=== PATIENT | female | born 1980 | race African-American/Black ===

== ENCOUNTER → 2016-06-29 | Outpatient (CLI) | payer OTHER ==
[~2016-06-29] MED LIST: /WARF5TA PO; ACET50TA PO; AMOX500T PO; AMOXI; ATIV0.5T3 PO; AUGM875T27 PO; BREO1INH INH; COLA50CA3 PO; EFFE75CA75 PO; FERR325T3 PO; HYDR25T PO; IBUP600T26 PO; LOVE0.8I SUBQ; OMEP40CA2 PO; ONDA4INJ48 PO; PERCOCET PO; PRENTAB74 PO; PROA1AER INH; SYNT100T PO; SYNT112T2 PO; TYLE325T5 PO; VENTAER INH; VITA500C24 PO; VITMTA PO; XANA0.25 PO
[2016-06-29 08:51] LABS: BASO % 0.7 % (0.0-1.0); EOS # 0.2 K/mm3 (0.0-0.50); EOS % 3.8 % (0.0-3.0); LARGE UNSTAINED CELL # 0.1 K/mm3 (0.0-0.4); LARGE UNSTAINED CELL % 1.8 % (0.0-4.0); LYMPH % 28.4 % (24.0-44.0); MEAN CORPUSCULAR HEMOGLOBIN 22.4 pg (27.0-33.0); MEAN CORPUSCULAR HGB CONC 29.9 g/dl (32.0-36.5); MEAN CORPUSCULAR VOLUME 75.1 fl (80.0-96.0); MONO # 0.4 K/mm3 (0.0-0.8); MONO % 6.2 % (0.0-5.0); NEUTROPHILS # 3.8 K/mm3 (1.8-7.7); NEUTROPHILS % 59.1 % (36.0-66.0); PLATELET COUNT, AUTOMATED 270 k/mm3 (150-450); RED CELL DISTRIBUTION WIDTH 17.5 % (11.5-14.5); WHITE BLOOD COUNT 6.5 K/mm3 (4.0-10.0)
[2016-06-29 09:12] LABS: ALBUMIN 3.2 GM/DL (3.2-5.2); ALBUMIN/GLOBULIN RATIO 0.86 (1.00-1.93); ALKALINE PHOSPHATASE 112 U/L (45-117); ALT/SGPT 19 U/L (12-78); ANION GAP 7 MEQ/L (8-16); AST/SGOT 11 U/L (15-37); BILIRUBIN,TOTAL 0.4 MG/DL (0.2-1.0); BLOOD UREA NITROGEN 11 MG/DL (7-18); CALCIUM LEVEL 8.4 MG/DL (8.5-10.1); CARBON DIOXIDE LEVEL 28 MEQ/L (21-32); CHLORIDE LEVEL 106 MEQ/L (98-107); CREATININE FOR GFR 0.88 MG/DL (0.55-1.02); FREE T4 0.97 NG/DL (0.76-1.46); GLOMERULAR FILTRATION RATE > 60.0 (>60); GLUCOSE, FASTING 97 MG/DL (70-105); PERCENT SATURATION 7.6 % (13.2-37.4); POTASSIUM SERUM 3.9 MEQ/L (3.5-5.1); SODIUM LEVEL 141 MEQ/L (136-145); TOTAL IRON BINDING CAPACITY 462 UG/DL (250-450); TOTAL PROTEIN 6.9 GM/DL (6.4-8.2)
== END ==
LOC: M LAB 07:56
PROVIDERS: ATTEND Internal Medicine Gastroenterology
DX: D50.9 Iron deficiency anemia, unspecified (principal)

== ENCOUNTER → 2016-08-05 | Outpatient (CLI) | payer OTHER ==
[~2016-08-05] VITALS: Ht 157.5 cm; Wt 106.1 kg
[~2016-08-05] MED LIST changes: +BACL10TA PO; +LIDOCAINE 2% INJ 100 MG/5 ML SDV (FOR ANES.) As Ordered ONE; +NS 1,000 ML IV SCH; +PROPOFOL 200 MG/20 ML VIAL As Ordered ONE; +VITA200016 PO; +VITA250L PO
--- NOTE | 2016-08-05 09:59 | ROOR ---
Patient Name: Tony Garcia Procedure Date: 08/05/2016 9:37 AM Date of : 1980 Age: 35 Room: [id number] Gender: Female Note Status: Finalized Procedure: Colonoscopy Indications: Iron deficiency anemia Providers: Raúl ROJAS MD Referring MD: JEANIE GARCIA Requesting Provider: Medicines: Monitored Anesthesia Care Complications: No immediate complications. Procedure: Pre-Anesthesia Assessment: - The heart rate, respiratory rate, oxygen saturations, blood pressure, adequacy of pulmonary ventilation, and response to care were monitored throughout the procedure. The Colonoscope was introduced through the anus and advanced to 4 cm into the ileum. The colonoscopy was performed without difficulty. The patient tolerated the procedure well. The quality of the bowel preparation was good. Findings: The perianal and digital rectal examinations were normal. (Exam: Complete, Prep: Good or Excellent.) The terminal ileum appeared normal. The entire examined colon appeared normal on direct and retroflexion views. Impression: - (Exam: Complete, Prep: Good or Excellent.) - The examined portion of the ileum was normal. - The entire colon is normal on direct and retroflexion views. - No specimens collected. Recommendation: - Repeat colonoscopy at age [age] years old. - Return to referring physician as previously scheduled. Raúl Rojas MD Raúl ROJAS MD 08/05/2016 9:58:53 AM This report has been signed electronically. Number of Addenda: 0 Note Initiated On: 08/05/2016 9:37 AM Estimated Blood Loss: Estimated blood loss: none.
[2016-08-05 10:30] VITALS: BP 108/60
== END | disposition home or self-care (01) ==
LOC: M OPP 08:58
PROVIDERS: ATTEND Internal Medicine Gastroenterology
DX: D50.9 Iron deficiency anemia, unspecified (principal); E03.9 Hypothyroidism, unspecified; R12 Heartburn; R23.3 Spontaneous ecchymoses; F41.9 Anxiety disorder, unspecified; J45.909 Unspecified asthma, uncomplicated; R06.83 Snoring; R06.02 Shortness of breath; M35.9 Systemic involvement of connective tissue, unspecified; Z88.6 Allergy status to analgesic agent; Z88.8 Allergy status to other drugs, medicaments and biological substances; Z91.040 Latex allergy status; Z91.018 Allergy to other foods; Z79.51 Long term (current) use of inhaled steroids; Z79.899 Other long term (current) drug therapy

== ENCOUNTER 2016-08-07 08:24 | Emergency (ER) | payer OTHER ==
[~2016-08-07 08:24] MED LIST changes: -LIDOCAINE 2% INJ 100 MG/5 ML SDV (FOR ANES.) As Ordered ONE; -NS 1,000 ML IV SCH; -PROPOFOL 200 MG/20 ML VIAL As Ordered ONE
[2016-08-07] MEDS ORDERED: ONDANSETRON 4MG/2ML VIAL (J2405) As Ordered ONE (08:54)
[2016-08-07] MEDS ORDERED: GASTROGRAFIN SOLUTION 30ML (Q9963) As Ordered ONE (08:55)
[2016-08-07] MEDS ORDERED: MORPHINE 4 MG/ML 1ML SYRINGE As Ordered ONE (08:55)
[2016-08-07 08:59] LABS: BASO % 0.5 % (0.0-1.0); EOS # 0.2 K/mm3 (0.0-0.50); EOS % 3.3 % (0.0-3.0); LARGE UNSTAINED CELL # 0.1 K/mm3 (0.0-0.4); LARGE UNSTAINED CELL % 2.1 % (0.0-4.0); LYMPH # 1.5 K/mm3 (1.5-4.5); LYMPH % 28.7 % (24.0-44.0); MEAN CORPUSCULAR HEMOGLOBIN 23.1 pg (27.0-33.0); MEAN CORPUSCULAR HGB CONC 30.6 g/dl (32.0-36.5); MEAN CORPUSCULAR VOLUME 75.3 fl (80.0-96.0); MONO # 0.3 K/mm3 (0.0-0.8); MONO % 5.6 % (0.0-5.0); NEUTROPHILS # 3.2 K/mm3 (1.8-7.7); NEUTROPHILS % 59.8 % (36.0-66.0); PLATELET COUNT, AUTOMATED 271 k/mm3 (150-450); RED CELL DISTRIBUTION WIDTH 16.5 % (11.5-14.5); WHITE BLOOD COUNT 5.4 K/mm3 (4.0-10.0)
[2016-08-07 09:13] LABS: CONTROL LINE HCG INT CTR LINE PRESENT
[2016-08-07 09:20] LABS: ALBUMIN 3.1 GM/DL (3.2-5.2); ALKALINE PHOSPHATASE 102 U/L (45-117); ALT/SGPT 18 U/L (12-78); ANION GAP 7 MEQ/L (8-16); AST/SGOT 11 U/L (15-37); BILIRUBIN,DIRECT 0.1 MG/DL (0.0-0.2); BILIRUBIN,TOTAL 0.5 MG/DL (0.2-1.0); BLOOD UREA NITROGEN 7 MG/DL (7-18); CALCIUM LEVEL 8.5 MG/DL (8.5-10.1); CARBON DIOXIDE LEVEL 28 MEQ/L (21-32); CHLORIDE LEVEL 106 MEQ/L (98-107); CREATININE FOR GFR 0.96 MG/DL (0.55-1.02); GLOMERULAR FILTRATION RATE > 60.0 (>60); GLUCOSE, FASTING 93 MG/DL (70-105); POTASSIUM SERUM 3.6 MEQ/L (3.5-5.1); SODIUM LEVEL 141 MEQ/L (136-145); TOTAL PROTEIN 7.5 GM/DL (6.4-8.2)
[2016-08-07] MEDS ORDERED: ISOVUE-370 76% 100ML VIAL (Q9967) As Ordered ONE (09:56)
[2016-08-07] MEDS ORDERED: MORPHINE 2 MG/ML 1ML SYRINGE As Ordered ONE (10:39)
--- NOTE | 2016-08-07 10:58 | REP ---
Clinical: Right upper quadrant pain. Technique: Axial contrast enhanced images from the lung bases to the pubic symphysis using oral and 100 ml Isovue 370 intravenous contrast material with coronal and sagittal re-formations. Findings: There is a focal somewhat ovoid area of fat stranding in the right mid abdomen lateral to the ascending colon (images 69 - 83) which is likely responsible for the patient's symptoms and differential diagnosis includes epiploic appendagitis versus focal fatty infarction. Liver, spleen, pancreas, bilateral adrenal glands and kidneys are normal. The enteric system including stomach, small and large bowel is without obstruction or acute inflammatory process. The pelvis demonstrates collapsed bladder and age-appropriate uterus/adnexa with right ovarian cyst measuring 3.5 cm and likely physiologic. No ascites. No adenopathy. No free air. Vasculature is normal. 3 cm fat containing periumbilical hernia noted. Osseous structures are intact. Lung bases demonstrate trace basilar atelectasis. Impression: Right upper quadrant pain likely related to epiploic appendagitis versus focal fatty infarction along the lateral aspect of the ascending colon as described above. 3.5 cm right ovarian cyst likely physiologic. 3 cm fat containing periumbilical hernia. No free fluid or further acute abdominopelvic pathology. Signed by Marty Farfan MD 08/07/2016 10:50 A
--- NOTE | 2016-08-07 12:11 | EDDOCDS ---
Nurse's Notes [facility] Name: Tony Loya Age: 35 yrs Sex: Female : 1980 Arrival Date: 08/07/2016 Time: 08:24 Bed 15 Private MD: Diagnosis: Upper abdominal pain, unspecified-possible epiploic appendagitis Presentation: 08/07 08:28 Presenting complaint: Patient states: RLQ pain began four days ago, colonoscopy on mlb1 Monday. Risk factors: the patient reports moderate vaginal bleeding. Adult Sepsis Screening: The patient does not have new or worsening altered mentation. Patient's respiratory rate is less than 22. Systolic blood pressure is greater than 100. Patient has a qSOFA score of 0- Negative Sepsis Screen. Suicide/Homicide risk assessment- the patient denies having any suicidal and/or homicidal ideations and does not present with any other emotional, behavioral or mental health complaints. Status: The patient is a dependent. Transition of care: patient was not received from another setting of care. 08:28 Acuity: RAJESH Level 3 mlb1 08:28 Method Of Arrival: Walkin/Carried/Asstd mlb1 Triage Assessment: 08:32 General: Appears in no apparent distress, Behavior is appropriate for age, cooperative. mlb1 Pain: Location: right lower quadrant Pain currently is 8 out of 10 on a pain scale. HIV screening NA for this visit Offered previously. 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 albuterol sulfate 90 mcg/actuation Inhl HFAA 1 puff every 4 hours 2. Breo Ellipta 100-25 mcg/dose inhalation dsdv 1 puff once daily 3. hydroxyzine HCl 25 mg Oral tab HS 4. Synthroid 100 mcg Oral tab once daily 5. Vitamin D Oral 5000 unit daily 6. Vitamin B-12 2,000 mcg Oral TbER daily 7. Zithromax 250 mg Oral tab 1 tab once daily - PMHx: Anxiety Disorder; Asthma; Lupus; Migraine Headaches; - PSHx: Breast Reduction; Cholecystectomy; Colonoscopy; - Social history: Smoking status: Patient states was never smoker of tobacco. No barriers to communication noted, The patient speaks fluent Indonesian, Speaks appropriately for age. - : The pt / caregiver states he / she is not on anticoagulants. Home medication list is obtained from the patient. - Exposure Risk Screening:: None identified. Screenin:11 Screening information is obtained from the patient. Fall risk: No risks identified. jjr Assistance ADL's: requires no assistance with activities of daily living. Abuse/DV Screen: The patient / caregiver reports he/she is: not in a situation that causes fear, pain or injury. Nutritional screening: No deficits noted. Advance Directives: There is no active DNR order. home support is adequate. Assessment: 09:10 General: Appears in no apparent distress, well nourished, well groomed, Behavior is jjr appropriate for age. Pain: Pain does not radiate. Quality of pain is described as sharp, Pain began 2-3 days ago Aggravated by eating, increased activity, Noted to be grimacing. Neurological: No deficits noted. Respiratory: No deficits noted. GI: Abdomen is non- distended obese, Bowel sounds present X 4 quads. Abd is soft X 4 quads Abd is tender to palpation in right upper quadrant Reports constipation prior to colonoscopy Monday. Derm: No deficits noted. 09:35 General: Appears in no apparent distress, reports constant pressure to upper right jjr lateral abdomen and RUQ with occasional sharp twinges. 10:44 General: Appears in no apparent distress, reports increase in sharp pain to RUQ since jjr moving for CT scan, medicated per order. 11:27 General: Appears in no apparent distress, continued 5/10 pressure to right lateral/RUQ jjr abdomen. 12:09 General: Appears in no apparent distress, Behavior is appropriate for age. jjr Neurological: No deficits noted. Respiratory: No deficits noted. Derm: No deficits noted. Vital Signs: 08:32 BP 130 / 81; Pulse 80; Resp 16; Temp 96.9(TE); Pulse Ox 100% on R/A; Weight 104.33 kg mlb1 (R); Height 5 ft. 2 in. (157.48 cm) (R); Pain 8/10; 09:34 BP 119 / 58; Pulse 68; Resp 18; Pulse Ox 98% on R/A; Pain 7/10; jjr 11:27 BP 131 / 81; Pulse 62; Resp 18; Pulse Ox 99% on R/A; Pain 5/10; jjr 12:09 Temp 98(O); jjr 08:32 Body Mass Index 42.07 (104.33 kg, 157.48 cm) mlb1 Vitals: 08:32 Log In Time: August 07, 2016 at 08:25. mlb1 ED Course: 08:26 Patient visited by Devante Aguero. jp5 08:26 Patient moved to Waiting jp5 08:28 Patient visited by Phong Edward RN. mlb1 08:30 Triage Initiated mlb1 08:33 Patient visited by Phong Edward, SANJEEV. mlb1 08:33 Patient moved to 15 mlb1 08:34 Dakota Capps MD is Attending Physician. br1 08:41 Patient visited by Dakota Capps MD. br1 08:53 HCG,Serum Qualitative Sent. jjr 08:53 Lipase Sent. jjr 08:53 Liver Profile Sent. jjr 08:53 BMP Sent. jjr 08:53 CBC with Diff Sent. jjr 09:12 Patient visited by Rachel Newton RN. jjr 09:12 The patient / caregiver is instructed regarding the plan of care and ED course. jjr 09:12 Inserted saline lock: 20 gauge in left antecubital area and blood collected. Labs jjr drawn. (by ED staff). Sent per order to lab. 09:36 Patient visited by Rachel Newton RN. jjr 09:56 [facility] [place] was scanned into [employer] and attached to record. mm15 10:15 Patient name changed from Rashawna\S\\S\Chance-Restrepo\S\ to Rashawna\S\ \S\Chance-Restrepo. EDMS 10:44 Patient visited by Rachel Newton RN. jjr 11:27 CT ABD & PELVIS: IV and Oral Contrast Returned. EDMS 11:28 Patient visited by Rachel Newton RN. jjr 11:58 Bryce Mac is Referral Physician. br1 12:09 Discontinued lock intact, bleeding controlled, pressure dressing applied, No jjr redness/swelling at site. No procedures done that require assistance. Administered Medications: 09:09 Drug: morphine 4 mg [morphine 4 mg/mL intravenous cartridge (1 mL)] Route: IVP; Site: jjr left antecubital; 09:34 Follow up: BP 119 / 58; Pulse 68 bpm; Resp 18 bpm; Pulse Ox 98% RA; Pain 12/19 Adult jjr 09:09 Drug: Ondansetron 4 mg [ondansetron HCl 2 mg/mL intravenous solution (2 mL)] Route: jjr IVP; Site: left antecubital; 09:09 Drug: Diatrizoate Meglumine & Sodium 10 ml [diatrizoate meglumine and diat.sodium 66 jjr %-10 % oral solution (10 mL)] Route: PO; 09: Drug: NS 0.9% 1000 ml [sodium chloride 0.9 % intravenous solution] Route: IV; Rate: 150 jjr mL/hr; Site: left antecubital; 12:09 Follow up: IV Status: Infusion discontinued; IV Intake: 300ml jjr 09:34 Drug: Diatrizoate Meglumine & Sodium 10 ml [diatrizoate meglumine and diat.sodium 66 jjr %-10 % oral solution (10 mL)] Route: PO; 10:43 Drug: morphine 2 mg [morphine 2 mg/mL intravenous cartridge (1 mL)] Route: IVP; Site: jr left antecubital; Intake: 12:09 IV: 300.00ml; Total: 300.00ml. jjr Order Results: Lab Order: CBC with Diff; SPEC'M 08/07/16 08:51 Test: WHITE BLOOD COUNT; Value: 5.4; Range: 4.0-10.0; Units: K/mm3; Status: F Test: RED BLOOD COUNT; Value: 4.63; Range: 4.00-5.40; Units: M/mm3; Status: F Test: HEMOGLOBIN; Value: 10.7; Range: 12.0-16.0; Abnormal: Below low normal; Units: g/dl; Status: F Test: HEMATOCRIT; Value: 34.8; Range: 36.0-47.0; Abnormal: Below low normal; Units: %; Status: F Test: MEAN CORPUSCULAR VOLUME; Value: 75.3; Range: 80.0-96.0; Abnormal: Below low normal; Units: fl; Status: F Test: MEAN CORPUSCULAR HEMOGLOBIN; Value: 23.1; Range: 27.0-33.0; Abnormal: Below low normal; Units: pg; Status: F Test: MEAN CORPUSCULAR HGB CONC; Value: 30.6; Range: 32.0-36.5; Abnormal: Below low normal; Units: g/dl; Status: F Test: RED CELL DISTRIBUTION WIDTH; Value: 16.5; Range: 11.5-14.5; Abnormal: Above high normal; Units: %; Status: F Test: PLATELET COUNT, AUTOMATED; Value: 271; Range: 150-450; Units: k/mm3; Status: F Test: NEUTROPHILS %; Value: 59.8; Range: 36.0-66.0; Units: %; Status: F Test: LYMPH %; Value: 28.7; Range: 24.0-44.0; Units: %; Status: F Test: MONO %; Value: 5.6; Range: 0.0-5.0; Abnormal: Above high normal; Units: %; Status: F Test: EOS %; Value: 3.3; Range: 0.0-3.0; Abnormal: Above high normal; Units: %; Status: F Test: BASO %; Value: 0.5; Range: 0.0-1.0; Units: %; Status: F Test: LARGE UNSTAINED CELL %; Value: 2.1; Range: 0.0-4.0; Units: %; Status: F Test: NEUTROPHILS #; Value: 3.2; Range: 1.8-7.7; Units: K/mm3; Status: F Test: LYMPH #; Value: 1.5; Range: 1.5-4.5; Units: K/mm3; Status: F Test: MONO #; Value: 0.3; Range: 0.0-0.8; Units: K/mm3; Status: F Test: EOS #; Value: 0.2; Range: 0.0-0.50; Units: K/mm3; Status: F Test: BASO #; Value: 0.0; Range: 0.0-0.2; Units: K/mm3; Status: F Test: LARGE UNSTAINED CELL #; Value: 0.1; Range: 0.0-0.4; Units: K/mm3; Status: F Lab Order: BMP; SPEC'M 08/07/16 08:51 Test: GLUCOSE, FASTING; Value: 93; Range: 70-105; Units: MG/DL; Status: F Test: BLOOD UREA NITROGEN; Value: 7; Range: 7-18; Units: MG/DL; Status: F Test: CREATININE FOR GFR; Value: 0.96; Range: 0.55-1.02; Units: MG/DL; Status: F Test: GLOMERULAR FILTRATION RATE; Value: > 60.0; Range: >60; Status: F Test: SODIUM LEVEL; Value: 141; Range: 136-145; Units: MEQ/L; Status: F Test: POTASSIUM SERUM; Value: 3.6; Range: 3.5-5.1; Units: MEQ/L; Status: F Test: CHLORIDE LEVEL; Value: 106; Range: 98-107; Units: MEQ/L; Status: F Test: CARBON DIOXIDE LEVEL; Value: 28; Range: 21-32; Units: MEQ/L; Status: F Test: ANION GAP; Value: 7; Range: 8-16; Abnormal: Below low normal; Units: MEQ/L; Status: F Test: CALCIUM LEVEL; Value: 8.5; Range: 8.5-10.1; Units: MG/DL; Status: F Test Note: ; Units are mL/min/1.73 m2 Chronic Kidney Disease Staging per NKF: Stage I & II GFR >=60 Normal to Mildly Decreased Stage III GFR 30-59 Moderately Decreased Stage IV GFR 15-29 Severely Decreased Stage V GFR <15 Very Little GFR Left ESRD GFR <15 on TRUCK TECHNICIAN Lab Order: Liver Profile; SPEC'M 08/07/16 08:51 Test: AST/SGOT; Value: 11; Range: 15-37; Abnormal: Below low normal; Units: U/L; Status: F Test: ALT/SGPT; Value: 18; Range: 12-78; Units: U/L; Status: F Test: ALKALINE PHOSPHATASE; Value: 102; Range: 45-117; Units: U/L; Status: F Test: BILIRUBIN,TOTAL; Value: 0.5; Range: 0.2-1.0; Units: MG/DL; Status: F Test: BILIRUBIN,DIRECT; Value: 0.1; Range: 0.0-0.2; Units: MG/DL; Status: F Test: TOTAL PROTEIN; Value: 7.5; Range: 6.4-8.2; Units: GM/DL; Status: F Test: ALBUMIN; Value: 3.1; Range: 3.2-5.2; Abnormal: Below low normal; Units: GM/DL; Status: F Test: ALBUMIN/GLOBULIN RATIO; Value: 0.70; Range: 1.00-1.93; Abnormal: Below low normal; Status: F Lab Order: Lipase; SPEC'M 08/07/16 08:51 Test: LIPASE; Value: 71; Range: 73-393; Abnormal: Below low normal; Units: U/L; Status: F Lab Order: HCG,Serum Qualitative; SPEC'M 08/07/16 08:51 Test: HCG, SERUM QUALITATIVE; Value: NEGATIVE; Range: NEGATIVE; Status: F Radiology Order: CT ABD & PELVIS: IV and Oral Contrast Test: CT ABD & PELVIS: IV and Oral Contrast REASON FOR EXAMINATION: RUQ pain; Clinical: Right upper quadrant pain.; ; Technique: Axial contrast enhanced images from the lung bases to the pubic; symphysis using oral and 100 ml Isovue 370 intravenous contrast material with; coronal and sagittal re-formations.; ; Findings:; There is a focal somewhat ovoid area of fat stranding in the right mid abdomen; lateral to the ascending colon (images 69 - 83) which is likely responsible for; the patient's symptoms and differential diagnosis includes epiploic appendagitis; versus focal fatty infarction.; ; Liver, spleen, pancreas, bilateral adrenal glands and kidneys are normal. The; enteric system including stomach, small and large bowel is without obstruction or; acute inflammatory process. The pelvis demonstrates collapsed bladder and; age-appropriate uterus/adnexa with right ovarian cyst measuring 3.5 cm and likely; physiologic. No ascites. No adenopathy. No free air. Vasculature is normal.; 3 cm fat containing periumbilical hernia noted. Osseous structures are intact.; Lung bases demonstrate trace basilar atelectasis.; ; Impression:; Right upper quadrant pain likely related to epiploic appendagitis versus focal; fatty infarction along the lateral aspect of the ascending colon as described; above.; 3.5 cm right ovarian cyst likely physiologic.; 3 cm fat containing periumbilical hernia.; No free fluid or further acute abdominopelvic pathology.; ; ; Signed by; Marty Farfan MD 08/07/2016 10:50 A; Outcome: 11:59 Discharge ordered by Provider. br1 12:10 Discharge Assessment: patient administered narcotics - yes. Pt provided with safe jjr discharge. The following High Risk Discharge criteria are identified: None. Discharged to home ambulatory. Condition: stable. Discharge instructions given to patient, Instructed on discharge instructions, follow up and referral plans. medication usage, Demonstrated understanding of instructions, medications, Prescriptions given X 1. CT Study completed. Property sent home with patient. 12:10 Patient left the ED. jjr Signatures: Dispatcher [employer] Phong Bundy RN RN mlb1 Dakota Capps MD MD br1 Rachel Newton RN RN jjr Nathaly Jung mm15 Devante Aguero 5 TODD
--- NOTE | 2016-08-07 12:11 | EDDOCDS ---
Physician Documentation [facility] Name: Tony Loya Age: 35 yrs Sex: Female : 1980 Arrival Date: 08/07/2016 Time: 08:24 Bed 15 Private MD: Disposition: 08/07/16 11:59 Discharged to Home/Self Care. Impression: Upper abdominal pain, unspecified - possible epiploic appendagitis. - Condition is Stable. - Discharge Instructions: Abdominal Pain, Adult. - Prescriptions for Percocet 5- 325 mg Oral Tablet - take 1 tablet by ORAL route every 6 hours As needed MDD: 4 tabs; 10 tablet. - Medication Reconciliation, Local Pharmacy Hours form. - Follow up: Bryce Mac; When: 2 - 3 days; Reason: Recheck today's complaints. - Problem is new. - Symptoms are unchanged. - Notes: You were seen in the ED for right upper abdominal pain. Bloodwork showed no acute abnormalilities. CT scan of the abdomen and pelvis showed stranding along the colon consistent with epiploic appendagitis. CT also showed a right ovarian cyst and a small paraumbilical hernia. We have discussed the case with your surgeon Dr. Mac, who has recommended that as you are feeling better youmay return home to follow up with him in the office for recheck of your abdomen - please call in the morning to arrange to be seen. You may take Percocet as needed for pain (no driving or operating machinery while on this medicine). Return to the ED for any return or worsening of pain, fever, vomiting, inability to tolerate oral foods or liquids, or any other concerns. Historical: - Allergies: Aspirin (Swelling); Latex (Hives); NSAIDS (wheeze); Tomato (Solanum Lycopersicum); - Home Meds: 1. albuterol sulfate 90 mcg/actuation Inhl HFAA 1 puff every 4 hours 2. Breo Ellipta 100-25 mcg/dose inhalation dsdv 1 puff once daily 3. hydroxyzine HCl 25 mg Oral tab HS 4. Synthroid 100 mcg Oral tab once daily 5. Vitamin D Oral 5000 unit daily 6. Vitamin B-12 2,000 mcg Oral TbER daily 7. Zithromax 250 mg Oral tab 1 tab once daily - PMHx: Anxiety Disorder; Asthma; Lupus; Migraine Headaches; - PSHx: Breast Reduction; Cholecystectomy; Colonoscopy; - Social history: Smoking status: Patient states was never smoker of tobacco. No barriers to communication noted, The patient speaks fluent Upper Sorbian, Speaks appropriately for age. - : The pt / caregiver states he / she is not on anticoagulants. Home medication list is obtained from the patient. - Exposure Risk Screening:: None identified. 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 2 in. (157.48 cm) (R); Pain 8/10; 09:34 BP 119 / 58; Pulse 68; Resp 18; Pulse Ox 98% on R/A; Pain 7/10; jjr 11:27 BP 131 / 81; Pulse 62; Resp 18; Pulse Ox 99% on R/A; Pain 5/10; jjr 12:09 Temp 98(O); jjr 08:32 Body Mass Index 42.07 (104.33 kg, 157.48 cm) mlb1 MDM: 08:42 IV Saline Lock ordered. br1 08:42 NS 0.9% 1000 ml IV at 150 mL/hr continuous ordered. br1 08:42 morphine 4 mg IVP once ordered. br1 08:43 Ondansetron 4 mg IVP once ordered. br1 08:44 CBC with Diff Ordered. EDMS 08:44 BMP Ordered. EDMS 08:44 Liver Profile Ordered. EDMS 08:44 Lipase Ordered. EDMS 08:44 CT ABD & PELVIS: IV and Oral Contrast Ordered. EDMS 08:50 HCG,Serum Qualitative Ordered. EDMS 08:54 Diatrizoate Meglumine & Sodium Liquid 10 ml PO once; mix in 290cc of water, administer jjr at 0855 and 0925 ordered. 08:54 Diatrizoate Meglumine & Sodium Liquid 10 ml PO once; mix in 290cc of water ordered. jjr 09:05 CBC with Diff Reviewed. br1 09:24 BMP Reviewed. br1 09:24 Liver Profile Reviewed. br1 09:24 Lipase Reviewed. br1 09:24 HCG,Serum Qualitative Reviewed. br1 09:56 Financial registration complete. mm15 09:56 [facility] Payment Agreement was scanned into [employer] and attached to record. mm15 10:39 morphine 2 mg IVP once ordered. br1 Administered Medications: 09:09 Drug: morphine 4 mg [morphine 4 mg/mL intravenous cartridge (1 mL)] Route: IVP; Site: jr left antecubital; 09:34 Follow up: BP 119 / 58; Pulse 68 bpm; Resp 18 bpm; Pulse Ox 98% RA; Pain 12/19 Adult jjr 09:09 Drug: Ondansetron 4 mg [ondansetron HCl 2 mg/mL intravenous solution (2 mL)] Route: jjr IVP; Site: left antecubital; 09:09 Drug: Diatrizoate Meglumine & Sodium 10 ml [diatrizoate meglumine and diat.sodium 66 jjr %-10 % oral solution (10 mL)] Route: PO; 09:10 Drug: NS 0.9% 1000 ml [sodium chloride 0.9 % intravenous solution] Route: IV; Rate: 150 jjr mL/hr; Site: left antecubital; 12:09 Follow up: IV Status: Infusion discontinued; IV Intake: 300ml jjr 09:34 Drug: Diatrizoate Meglumine & Sodium 10 ml [diatrizoate meglumine and diat.sodium 66 jjr %-10 % oral solution (10 mL)] Route: PO; 10:43 Drug: morphine 2 mg [morphine 2 mg/mL intravenous cartridge (1 mL)] Route: IVP; Site: r left antecubital; Signatures: Dispatcher [employer] Phong Bundy RN RN mlb1 Dakota Capps MD MD br1 Rachel Newton RN RN jjr Nathaly Jung mm15 The chart was reviewed and I authenticate all verbal orders and agree with the evaluation and treatment provided.Attachments: 09:56 [facility] Payment Agreement mm15 MTDD
--- NOTE | 2016-08-09 13:11 | EDDOCDS ---
Physician Documentation [facility] Name: Tony Loya Age: 35 yrs Sex: Female : 1980 Arrival Date: 08/07/2016 Time: 08:24 Bed 15 Private MD: Disposition: 08/07/16 11:59 Discharged to Home/Self Care. Impression: Upper abdominal pain, unspecified - possible epiploic appendagitis. - Condition is Stable. - Discharge Instructions: Abdominal Pain, Adult. - Prescriptions for Percocet 5- 325 mg Oral Tablet - take 1 tablet by ORAL route every 6 hours As needed MDD: 4 tabs; 10 tablet. - Medication Reconciliation, Local Pharmacy Hours form. - Follow up: Bryce Mac; When: 2 - 3 days; Reason: Recheck today's complaints. - Problem is new. - Symptoms are unchanged. - Notes: You were seen in the ED for right upper abdominal pain. Bloodwork showed no acute abnormalilities. CT scan of the abdomen and pelvis showed stranding along the colon consistent with epiploic appendagitis. CT also showed a right ovarian cyst and a small paraumbilical hernia. We have discussed the case with your surgeon Dr. Mac, who has recommended that as you are feeling better youmay return home to follow up with him in the office for recheck of your abdomen - please call in the morning to arrange to be seen. You may take Percocet as needed for pain (no driving or operating machinery while on this medicine). Return to the ED for any return or worsening of pain, fever, vomiting, inability to tolerate oral foods or liquids, or any other concerns. Historical: - Allergies: Aspirin (Swelling); Latex (Hives); NSAIDS (wheeze); Tomato (Solanum Lycopersicum); - Home Meds: 1. albuterol sulfate 90 mcg/actuation Inhl HFAA 1 puff every 4 hours 2. Breo Ellipta 100-25 mcg/dose inhalation dsdv 1 puff once daily 3. hydroxyzine HCl 25 mg Oral tab HS 4. Synthroid 100 mcg Oral tab once daily 5. Vitamin D Oral 5000 unit daily 6. Vitamin B-12 2,000 mcg Oral TbER daily 7. Zithromax 250 mg Oral tab 1 tab once daily - PMHx: Anxiety Disorder; Asthma; Lupus; Migraine Headaches; - PSHx: Breast Reduction; Cholecystectomy; Colonoscopy; - Social history: Smoking status: Patient states was never smoker of tobacco. No barriers to communication noted, The patient speaks fluent Arabic, Speaks appropriately for age. - : The pt / caregiver states he / she is not on anticoagulants. Home medication list is obtained from the patient. - Exposure Risk Screening:: None identified. 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 2 in. (157.48 cm) (R); Pain 8/10; 09:34 BP 119 / 58; Pulse 68; Resp 18; Pulse Ox 98% on R/A; Pain 7/10; jjr 11:27 BP 131 / 81; Pulse 62; Resp 18; Pulse Ox 99% on R/A; Pain 5/10; jjr 12:09 Temp 98(O); jjr 08:32 Body Mass Index 42.07 (104.33 kg, 157.48 cm) mlb1 MDM: 08:42 IV Saline Lock ordered. br1 08:42 NS 0.9% 1000 ml IV at 150 mL/hr continuous ordered. br1 08:42 morphine 4 mg IVP once ordered. br1 08:43 Ondansetron 4 mg IVP once ordered. br1 08:44 CBC with Diff Ordered. EDMS 08:44 BMP Ordered. EDMS 08:44 Liver Profile Ordered. EDMS 08:44 Lipase Ordered. EDMS 08:44 CT ABD & PELVIS: IV and Oral Contrast Ordered. EDMS 08:50 HCG,Serum Qualitative Ordered. EDMS 08:54 Diatrizoate Meglumine & Sodium Liquid 10 ml PO once; mix in 290cc of water, administer jjr at 0855 and 0925 ordered. 08:54 Diatrizoate Meglumine & Sodium Liquid 10 ml PO once; mix in 290cc of water ordered. jjr 09:05 CBC with Diff Reviewed. br1 09:24 BMP Reviewed. br1 09:24 Liver Profile Reviewed. br1 09:24 Lipase Reviewed. br1 09:24 HCG,Serum Qualitative Reviewed. br1 09:56 Financial registration complete. mm15 09:56 [facility] Payment Agreement was scanned into ZummZumm and attached to record. mm15 10:39 morphine 2 mg IVP once ordered. br1 13:42 T-Sheet-- Draft Copy was scanned into ZummZumm and attached to record. [facility] 08/08 15:37 Radiology Report was scanned into ZummZumm and attached to record. gb Administered Medications: 08/07 09:09 Drug: morphine 4 mg [morphine 4 mg/mL intravenous cartridge (1 mL)] Route: IVP; Site: jjr left antecubital; 09:34 Follow up: BP 119 / 58; Pulse 68 bpm; Resp 18 bpm; Pulse Ox 98% RA; Pain 10 Adult jjr 09:09 Drug: Ondansetron 4 mg [ondansetron HCl 2 mg/mL intravenous solution (2 mL)] Route: jjr IVP; Site: left antecubital; 09:09 Drug: Diatrizoate Meglumine & Sodium 10 ml [diatrizoate meglumine and diat.sodium 66 jjr %-10 % oral solution (10 mL)] Route: PO; 09:10 Drug: NS 0.9% 1000 ml [sodium chloride 0.9 % intravenous solution] Route: IV; Rate: 150 jjr mL/hr; Site: left antecubital; 12:09 Follow up: IV Status: Infusion discontinued; IV Intake: 300ml jjr 09:34 Drug: Diatrizoate Meglumine & Sodium 10 ml [diatrizoate meglumine and diat.sodium 66 jjr %-10 % oral solution (10 mL)] Route: PO; 10:43 Drug: morphine 2 mg [morphine 2 mg/mL intravenous cartridge (1 mL)] Route: IVP; Site: jjr left antecubital; Signatures: Dispatcher MedHost Alicia Carvalho, Jonathan Reg gb Phong Edward RN RN mlb1 Dakota Capps MD MD br1 Rachel Newton RN RN jjr Nathaly Jung mm15 Hailey Scott [facility] The chart was reviewed and I authenticate all verbal orders and agree with the evaluation and treatment provided.Attachments: 09:56 [facility] Payment Agreement mm15 13:42 T-Sheet-- Draft Copy seh Chart Complete MTDD
--- NOTE | 2016-08-09 13:11 | EDDOCDS ---
Physician Documentation [facility] Name: Tony Loya Age: 35 yrs Sex: Female : 1980 Arrival Date: 08/07/2016 Time: 08:24 Bed 15 Private MD: Disposition: 08/07/16 11:59 Discharged to Home/Self Care. Impression: Upper abdominal pain, unspecified - possible epiploic appendagitis. - Condition is Stable. - Discharge Instructions: Abdominal Pain, Adult. - Prescriptions for Percocet 5- 325 mg Oral Tablet - take 1 tablet by ORAL route every 6 hours As needed MDD: 4 tabs; 10 tablet. - Medication Reconciliation, Local Pharmacy Hours form. - Follow up: Bryce Mac; When: 2 - 3 days; Reason: Recheck today's complaints. - Problem is new. - Symptoms are unchanged. - Notes: You were seen in the ED for right upper abdominal pain. Bloodwork showed no acute abnormalilities. CT scan of the abdomen and pelvis showed stranding along the colon consistent with epiploic appendagitis. CT also showed a right ovarian cyst and a small paraumbilical hernia. We have discussed the case with your surgeon Dr. Mac, who has recommended that as you are feeling better youmay return home to follow up with him in the office for recheck of your abdomen - please call in the morning to arrange to be seen. You may take Percocet as needed for pain (no driving or operating machinery while on this medicine). Return to the ED for any return or worsening of pain, fever, vomiting, inability to tolerate oral foods or liquids, or any other concerns. Historical: - Allergies: Aspirin (Swelling); Latex (Hives); NSAIDS (wheeze); Tomato (Solanum Lycopersicum); - Home Meds: 1. albuterol sulfate 90 mcg/actuation Inhl HFAA 1 puff every 4 hours 2. Breo Ellipta 100-25 mcg/dose inhalation dsdv 1 puff once daily 3. hydroxyzine HCl 25 mg Oral tab HS 4. Synthroid 100 mcg Oral tab once daily 5. Vitamin D Oral 5000 unit daily 6. Vitamin B-12 2,000 mcg Oral TbER daily 7. Zithromax 250 mg Oral tab 1 tab once daily - PMHx: Anxiety Disorder; Asthma; Lupus; Migraine Headaches; - PSHx: Breast Reduction; Cholecystectomy; Colonoscopy; - Social history: Smoking status: Patient states was never smoker of tobacco. No barriers to communication noted, The patient speaks fluent Slovak, Speaks appropriately for age. - : The pt / caregiver states he / she is not on anticoagulants. Home medication list is obtained from the patient. - Exposure Risk Screening:: None identified. 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 2 in. (157.48 cm) (R); Pain 8/10; 09:34 BP 119 / 58; Pulse 68; Resp 18; Pulse Ox 98% on R/A; Pain 7/10; jjr 11:27 BP 131 / 81; Pulse 62; Resp 18; Pulse Ox 99% on R/A; Pain 5/10; jjr 12:09 Temp 98(O); jjr 08:32 Body Mass Index 42.07 (104.33 kg, 157.48 cm) mlb1 MDM: 08:42 IV Saline Lock ordered. br1 08:42 NS 0.9% 1000 ml IV at 150 mL/hr continuous ordered. br1 08:42 morphine 4 mg IVP once ordered. br1 08:43 Ondansetron 4 mg IVP once ordered. br1 08:44 CBC with Diff Ordered. EDMS 08:44 BMP Ordered. EDMS 08:44 Liver Profile Ordered. EDMS 08:44 Lipase Ordered. EDMS 08:44 CT ABD & PELVIS: IV and Oral Contrast Ordered. EDMS 08:50 HCG,Serum Qualitative Ordered. EDMS 08:54 Diatrizoate Meglumine & Sodium Liquid 10 ml PO once; mix in 290cc of water, administer jjr at 0855 and 0925 ordered. 08:54 Diatrizoate Meglumine & Sodium Liquid 10 ml PO once; mix in 290cc of water ordered. jjr 09:05 CBC with Diff Reviewed. br1 09:24 BMP Reviewed. br1 09:24 Liver Profile Reviewed. br1 09:24 Lipase Reviewed. br1 09:24 HCG,Serum Qualitative Reviewed. br1 09:56 Financial registration complete. mm15 09:56 [facility] Payment Agreement was scanned into nScaled and attached to record. mm15 10:39 morphine 2 mg IVP once ordered. br1 13:42 T-Sheet-- Draft Copy was scanned into nScaled and attached to record. [facility] 08/08 15:37 Radiology Report was scanned into nScaled and attached to record. gb Administered Medications: 08/07 09:09 Drug: morphine 4 mg [morphine 4 mg/mL intravenous cartridge (1 mL)] Route: IVP; Site: jjr left antecubital; 09:34 Follow up: BP 119 / 58; Pulse 68 bpm; Resp 18 bpm; Pulse Ox 98% RA; Pain 10 Adult jjr 09:09 Drug: Ondansetron 4 mg [ondansetron HCl 2 mg/mL intravenous solution (2 mL)] Route: jjr IVP; Site: left antecubital; 09:09 Drug: Diatrizoate Meglumine & Sodium 10 ml [diatrizoate meglumine and diat.sodium 66 jjr %-10 % oral solution (10 mL)] Route: PO; 09:10 Drug: NS 0.9% 1000 ml [sodium chloride 0.9 % intravenous solution] Route: IV; Rate: 150 jjr mL/hr; Site: left antecubital; 12:09 Follow up: IV Status: Infusion discontinued; IV Intake: 300ml jjr 09:34 Drug: Diatrizoate Meglumine & Sodium 10 ml [diatrizoate meglumine and diat.sodium 66 jjr %-10 % oral solution (10 mL)] Route: PO; 10:43 Drug: morphine 2 mg [morphine 2 mg/mL intravenous cartridge (1 mL)] Route: IVP; Site: jjr left antecubital; Signatures: Dispatcher MedHost Alicia Carvalho, Jonathan Reg gb Phong Edward RN RN mlb1 Dakota Capps MD MD br1 Rachel Newton RN RN jjr Nathaly Jung mm15 Hailey Scott [facility] The chart was reviewed and I authenticate all verbal orders and agree with the evaluation and treatment provided.Attachments: 09:56 [facility] Payment Agreement mm15 13:42 T-Sheet-- Draft Copy seh Chart Complete MTDD
--- NOTE | 2016-08-09 13:12 | EDDOCDS ---
Nurse's Notes [facility] Name: Tony Loya Age: 35 yrs Sex: Female : 1980 Arrival Date: 08/07/2016 Time: 08:24 Bed 15 Private MD: Diagnosis: Upper abdominal pain, unspecified-possible epiploic appendagitis Presentation: 08/07 08:28 Presenting complaint: Patient states: RLQ pain began four days ago, colonoscopy on mlb1 Monday. Risk factors: the patient reports moderate vaginal bleeding. Adult Sepsis Screening: The patient does not have new or worsening altered mentation. Patient's respiratory rate is less than 22. Systolic blood pressure is greater than 100. Patient has a qSOFA score of 0- Negative Sepsis Screen. Suicide/Homicide risk assessment- the patient denies having any suicidal and/or homicidal ideations and does not present with any other emotional, behavioral or mental health complaints. Status: The patient is a dependent. Transition of care: patient was not received from another setting of care. 08:28 Acuity: RAJESH Level 3 mlb1 08:28 Method Of Arrival: Walkin/Carried/Asstd mlb1 Triage Assessment: 08:32 General: Appears in no apparent distress, Behavior is appropriate for age, cooperative. mlb1 Pain: Location: right lower quadrant Pain currently is 8 out of 10 on a pain scale. HIV screening NA for this visit Offered previously. 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 albuterol sulfate 90 mcg/actuation Inhl HFAA 1 puff every 4 hours 2. Breo Ellipta 100-25 mcg/dose inhalation dsdv 1 puff once daily 3. hydroxyzine HCl 25 mg Oral tab HS 4. Synthroid 100 mcg Oral tab once daily 5. Vitamin D Oral 5000 unit daily 6. Vitamin B-12 2,000 mcg Oral TbER daily 7. Zithromax 250 mg Oral tab 1 tab once daily - PMHx: Anxiety Disorder; Asthma; Lupus; Migraine Headaches; - PSHx: Breast Reduction; Cholecystectomy; Colonoscopy; - Social history: Smoking status: Patient states was never smoker of tobacco. No barriers to communication noted, The patient speaks fluent Maltese, Speaks appropriately for age. - : The pt / caregiver states he / she is not on anticoagulants. Home medication list is obtained from the patient. - Exposure Risk Screening:: None identified. Screenin:11 Screening information is obtained from the patient. Fall risk: No risks identified. jjr Assistance ADL's: requires no assistance with activities of daily living. Abuse/DV Screen: The patient / caregiver reports he/she is: not in a situation that causes fear, pain or injury. Nutritional screening: No deficits noted. Advance Directives: There is no active DNR order. home support is adequate. Assessment: 09:10 General: Appears in no apparent distress, well nourished, well groomed, Behavior is jjr appropriate for age. Pain: Pain does not radiate. Quality of pain is described as sharp, Pain began 2-3 days ago Aggravated by eating, increased activity, Noted to be grimacing. Neurological: No deficits noted. Respiratory: No deficits noted. GI: Abdomen is non- distended obese, Bowel sounds present X 4 quads. Abd is soft X 4 quads Abd is tender to palpation in right upper quadrant Reports constipation prior to colonoscopy Monday. Derm: No deficits noted. 09:35 General: Appears in no apparent distress, reports constant pressure to upper right jjr lateral abdomen and RUQ with occasional sharp twinges. 10:44 General: Appears in no apparent distress, reports increase in sharp pain to RUQ since jjr moving for CT scan, medicated per order. 11:27 General: Appears in no apparent distress, continued 5/10 pressure to right lateral/RUQ jjr abdomen. 12:09 General: Appears in no apparent distress, Behavior is appropriate for age. jjr Neurological: No deficits noted. Respiratory: No deficits noted. Derm: No deficits noted. Vital Signs: 08:32 BP 130 / 81; Pulse 80; Resp 16; Temp 96.9(TE); Pulse Ox 100% on R/A; Weight 104.33 kg mlb1 (R); Height 5 ft. 2 in. (157.48 cm) (R); Pain 8/10; 09:34 BP 119 / 58; Pulse 68; Resp 18; Pulse Ox 98% on R/A; Pain 7/10; jjr 11:27 BP 131 / 81; Pulse 62; Resp 18; Pulse Ox 99% on R/A; Pain 5/10; jjr 12:09 Temp 98(O); jjr 08:32 Body Mass Index 42.07 (104.33 kg, 157.48 cm) mlb1 Vitals: 08:32 Log In Time: August 07, 2016 at 08:25. mlb1 ED Course: 08:26 Patient visited by Devante Aguero. jp5 08:26 Patient moved to Waiting jp5 08:28 Patient visited by Phong Edward RN. mlb1 08:30 Triage Initiated mlb1 08:33 Patient visited by Phong Edward, SANJEEV. mlb1 08:33 Patient moved to 15 mlb1 08:34 Dakota Capps MD is Attending Physician. br1 08:41 Patient visited by Dakota Capps MD. br1 08:53 HCG,Serum Qualitative Sent. jjr 08:53 Lipase Sent. jjr 08:53 Liver Profile Sent. jjr 08:53 BMP Sent. jjr 08:53 CBC with Diff Sent. jjr 09:12 Patient visited by Rachel Newton RN. jjr 09:12 The patient / caregiver is instructed regarding the plan of care and ED course. jjr 09:12 Inserted saline lock: 20 gauge in left antecubital area and blood collected. Labs jjr drawn. (by ED staff). Sent per order to lab. 09:36 Patient visited by Rachel Newton RN. jjr 09:56 [facility] Payment Agreement was scanned into [employer]ner and attached to record. mm15 10:15 Patient name changed from Rashawna\S\\S\Chance-Restrepo\S\ to Rashawna\S\ \S\Chance-Restrepo. EDMS 10:44 Patient visited by Rachel Newton RN. jjr 11:27 CT ABD & PELVIS: IV and Oral Contrast Returned. EDMS 11:28 Patient visited by Rachel Newton RN. jjr 11:58 Bryce Mac is Referral Physician. br1 12:09 Discontinued lock intact, bleeding controlled, pressure dressing applied, No jjr redness/swelling at site. No procedures done that require assistance. 13:42 T-Sheet-- Draft Copy was scanned into [employer] and attached to record. [facility] 08/08 15:37 Radiology Report was scanned into [employer] and attached to record. gb Administered Medications: 08/07 09:09 Drug: morphine 4 mg [morphine 4 mg/mL intravenous cartridge (1 mL)] Route: IVP; Site: [facility] left antecubital; 09:34 Follow up: BP 119 / 58; Pulse 68 bpm; Resp 18 bpm; Pulse Ox 98% RA; Pain 12/19 Adult jjr 09:09 Drug: Ondansetron 4 mg [ondansetron HCl 2 mg/mL intravenous solution (2 mL)] Route: jjr IVP; Site: left antecubital; 09:09 Drug: Diatrizoate Meglumine & Sodium 10 ml [diatrizoate meglumine and diat.sodium 66 jjr %-10 % oral solution (10 mL)] Route: PO; 09:10 Drug: NS 0.9% 1000 ml [sodium chloride 0.9 % intravenous solution] Route: IV; Rate: 150 jjr mL/hr; Site: left antecubital; 12:09 Follow up: IV Status: Infusion discontinued; IV Intake: 300ml r 09:34 Drug: Diatrizoate Meglumine & Sodium 10 ml [diatrizoate meglumine and diat.sodium 66 jjr %-10 % oral solution (10 mL)] Route: PO; 10:43 Drug: morphine 2 mg [morphine 2 mg/mL intravenous cartridge (1 mL)] Route: IVP; Site: r left antecubital; Intake: 12:09 IV: 300.00ml; Total: 300.00ml. jjr Order Results: Lab Order: CBC with Diff; SPEC'M 08/07/16 08:51 Test: WHITE BLOOD COUNT; Value: 5.4; Range: 4.0-10.0; Units: K/mm3; Status: F Test: RED BLOOD COUNT; Value: 4.63; Range: 4.00-5.40; Units: M/mm3; Status: F Test: HEMOGLOBIN; Value: 10.7; Range: 12.0-16.0; Abnormal: Below low normal; Units: g/dl; Status: F Test: HEMATOCRIT; Value: 34.8; Range: 36.0-47.0; Abnormal: Below low normal; Units: %; Status: F Test: MEAN CORPUSCULAR VOLUME; Value: 75.3; Range: 80.0-96.0; Abnormal: Below low normal; Units: fl; Status: F Test: MEAN CORPUSCULAR HEMOGLOBIN; Value: 23.1; Range: 27.0-33.0; Abnormal: Below low normal; Units: pg; Status: F Test: MEAN CORPUSCULAR HGB CONC; Value: 30.6; Range: 32.0-36.5; Abnormal: Below low normal; Units: g/dl; Status: F Test: RED CELL DISTRIBUTION WIDTH; Value: 16.5; Range: 11.5-14.5; Abnormal: Above high normal; Units: %; Status: F Test: PLATELET COUNT, AUTOMATED; Value: 271; Range: 150-450; Units: k/mm3; Status: F Test: NEUTROPHILS %; Value: 59.8; Range: 36.0-66.0; Units: %; Status: F Test: LYMPH %; Value: 28.7; Range: 24.0-44.0; Units: %; Status: F Test: MONO %; Value: 5.6; Range: 0.0-5.0; Abnormal: Above high normal; Units: %; Status: F Test: EOS %; Value: 3.3; Range: 0.0-3.0; Abnormal: Above high normal; Units: %; Status: F Test: BASO %; Value: 0.5; Range: 0.0-1.0; Units: %; Status: F Test: LARGE UNSTAINED CELL %; Value: 2.1; Range: 0.0-4.0; Units: %; Status: F Test: NEUTROPHILS #; Value: 3.2; Range: 1.8-7.7; Units: K/mm3; Status: F Test: LYMPH #; Value: 1.5; Range: 1.5-4.5; Units: K/mm3; Status: F Test: MONO #; Value: 0.3; Range: 0.0-0.8; Units: K/mm3; Status: F Test: EOS #; Value: 0.2; Range: 0.0-0.50; Units: K/mm3; Status: F Test: BASO #; Value: 0.0; Range: 0.0-0.2; Units: K/mm3; Status: F Test: LARGE UNSTAINED CELL #; Value: 0.1; Range: 0.0-0.4; Units: K/mm3; Status: F Lab Order: BMP; SPEC'M 08/07/16 08:51 Test: GLUCOSE, FASTING; Value: 93; Range: 70-105; Units: MG/DL; Status: F Test: BLOOD UREA NITROGEN; Value: 7; Range: 7-18; Units: MG/DL; Status: F Test: CREATININE FOR GFR; Value: 0.96; Range: 0.55-1.02; Units: MG/DL; Status: F Test: GLOMERULAR FILTRATION RATE; Value: > 60.0; Range: >60; Status: F Test: SODIUM LEVEL; Value: 141; Range: 136-145; Units: MEQ/L; Status: F Test: POTASSIUM SERUM; Value: 3.6; Range: 3.5-5.1; Units: MEQ/L; Status: F Test: CHLORIDE LEVEL; Value: 106; Range: 98-107; Units: MEQ/L; Status: F Test: CARBON DIOXIDE LEVEL; Value: 28; Range: 21-32; Units: MEQ/L; Status: F Test: ANION GAP; Value: 7; Range: 8-16; Abnormal: Below low normal; Units: MEQ/L; Status: F Test: CALCIUM LEVEL; Value: 8.5; Range: 8.5-10.1; Units: MG/DL; Status: F Test Note: ; Units are mL/min/1.73 m2 Chronic Kidney Disease Staging per NKF: Stage I & II GFR >=60 Normal to Mildly Decreased Stage III GFR 30-59 Moderately Decreased Stage IV GFR 15-29 Severely Decreased Stage V GFR <15 Very Little GFR Left ESRD GFR <15 on TIGER MACHINE OPERATOR Lab Order: Liver Profile; SPEC'M 08/07/16 08:51 Test: AST/SGOT; Value: 11; Range: 15-37; Abnormal: Below low normal; Units: U/L; Status: F Test: ALT/SGPT; Value: 18; Range: 12-78; Units: U/L; Status: F Test: ALKALINE PHOSPHATASE; Value: 102; Range: 45-117; Units: U/L; Status: F Test: BILIRUBIN,TOTAL; Value: 0.5; Range: 0.2-1.0; Units: MG/DL; Status: F Test: BILIRUBIN,DIRECT; Value: 0.1; Range: 0.0-0.2; Units: MG/DL; Status: F Test: TOTAL PROTEIN; Value: 7.5; Range: 6.4-8.2; Units: GM/DL; Status: F Test: ALBUMIN; Value: 3.1; Range: 3.2-5.2; Abnormal: Below low normal; Units: GM/DL; Status: F Test: ALBUMIN/GLOBULIN RATIO; Value: 0.70; Range: 1.00-1.93; Abnormal: Below low normal; Status: F Lab Order: Lipase; SPEC'M 08/07/16 08:51 Test: LIPASE; Value: 71; Range: 73-393; Abnormal: Below low normal; Units: U/L; Status: F Lab Order: HCG,Serum Qualitative; SPEC'M 08/07/16 08:51 Test: HCG, SERUM QUALITATIVE; Value: NEGATIVE; Range: NEGATIVE; Status: F Radiology Order: CT ABD & PELVIS: IV and Oral Contrast Test: CT ABD & PELVIS: IV and Oral Contrast REASON FOR EXAMINATION: RUQ pain; Clinical: Right upper quadrant pain.; ; Technique: Axial contrast enhanced images from the lung bases to the pubic; symphysis using oral and 100 ml Isovue 370 intravenous contrast material with; coronal and sagittal re-formations.; ; Findings:; There is a focal somewhat ovoid area of fat stranding in the right mid abdomen; lateral to the ascending colon (images 69 - 83) which is likely responsible for; the patient's symptoms and differential diagnosis includes epiploic appendagitis; versus focal fatty infarction.; ; Liver, spleen, pancreas, bilateral adrenal glands and kidneys are normal. The; enteric system including stomach, small and large bowel is without obstruction or; acute inflammatory process. The pelvis demonstrates collapsed bladder and; age-appropriate uterus/adnexa with right ovarian cyst measuring 3.5 cm and likely; physiologic. No ascites. No adenopathy. No free air. Vasculature is normal.; 3 cm fat containing periumbilical hernia noted. Osseous structures are intact.; Lung bases demonstrate trace basilar atelectasis.; ; Impression:; Right upper quadrant pain likely related to epiploic appendagitis versus focal; fatty infarction along the lateral aspect of the ascending colon as described; above.; 3.5 cm right ovarian cyst likely physiologic.; 3 cm fat containing periumbilical hernia.; No free fluid or further acute abdominopelvic pathology.; ; ; Signed by; Marty Farfan MD 08/07/2016 10:50 A; Outcome: 11:59 Discharge ordered by Provider. br1 12:10 Discharge Assessment: patient administered narcotics - yes. Pt provided with safe jjr discharge. The following High Risk Discharge criteria are identified: None. Discharged to home ambulatory. Condition: stable. Discharge instructions given to patient, Instructed on discharge instructions, follow up and referral plans. medication usage, Demonstrated understanding of instructions, medications, Prescriptions given X 1. CT Study completed. Property sent home with patient. 12:10 Patient left the ED. jjr Signatures: Dispatcher MedHost EDMS Alicia Flowers, Reg Reg gb Phong Edward, RN RN mlb1 Dakota Capps MD MD br1 Rachel Newton, SANJEEV RN jjr Nathaly Jung mm15 Devante Aguero jp5 Hailey Scott Chart Complete MTDD
== END 2016-08-07 12:10 | disposition home or self-care (01) ==
LOC: M ED 08:24
DX: R10.10 Upper abdominal pain, unspecified (principal); J45.909 Unspecified asthma, uncomplicated; F41.9 Anxiety disorder, unspecified; D68.62 Lupus anticoagulant syndrome; G43.909 Migraine, unspecified, not intractable, without status migrainosus; Z79.899 Other long term (current) drug therapy; Z79.51 Long term (current) use of inhaled steroids; Z91.040 Latex allergy status; Z91.018 Allergy to other foods; Z88.6 Allergy status to analgesic agent
CPT/HCPCS: 36415; 74177; 80048; 80076; 83690; 84703; 85025; 96361; 96374; 96375; 96376; 99284; J2405; Q9963; Q9967

== ENCOUNTER → 2017-01-17 | Outpatient (CLI) | payer OTHER ==
[~2017-01-17] MED LIST changes: -BACL10TA PO; +BACL1TAB8 PO; +HYDR-3363 PO; -HYDR25T PO; -PROA1AER INH; +PROAAER10 INH
--- NOTE | 2017-01-17 18:42 | REP ---
Left lower extremity Duplex Doppler venous ultrasound: Real time compression and duplex Doppler interrogation of the left lower extremity deep venous system is performed. The left common femoral, superficial femoral and popliteal veins are fully compressible with transducer pressure and demonstrate normal spontaneous and phasic flow, without evidence of deep venous thrombosis. Impression: No evidence of deep venous thrombosis of the left lower extremity femoral popliteal venous system. Signed by Shon Chan MD 01/17/2017 06:34 P
== END ==
LOC: M RAD 17:08
PROVIDERS: ATTEND Physician Assistant
DX: M79.605 Pain in left leg (principal); Z86.718 Personal history of other venous thrombosis and embolism

== ENCOUNTER 2017-05-18 06:34 | Day surgery (SDC) | payer OTHER ==
[~2017-05-18] VITALS: Ht 157.5 cm; Wt 100.8 kg
[2017-05-18] MEDS ORDERED: LR 1,000 ML IV SCH ×2 (06:45→08:45)
[2017-05-18] MEDS ORDERED: MIDAZOLAM INJ 2 MG/2 ML VIAL (J2250) As Ordered ONE (07:03)
[2017-05-18] MEDS ORDERED: fentaNYL 100 MCG/2 ML INJECTION (J3010) As Ordered ONE ×2 (07:03→07:49)
[2017-05-18 07:05] LABS: CONTROL LINE UCG INT CTR LINE PRESENT
[2017-05-18] MEDS ORDERED: dexameTHASONE 4 MG/ML 1ML VIAL (J1100) As Ordered ONE (07:47)
[2017-05-18] MEDS ORDERED: LIDOCAINE 2% INJ 100 MG/5 ML SDV (FOR ANES.) As Ordered ONE (07:47)
[2017-05-18] MEDS ORDERED: PROPOFOL 200 MG/20 ML VIAL As Ordered ONE (07:47)
[2017-05-18] MEDS ORDERED: KETOROLAC 60 MG/2 ML VIAL (J1885) As Ordered ONE (07:47)
[2017-05-18] MEDS ORDERED: ONDANSETRON 4MG/2ML VIAL (J2405) As Ordered ONE (07:47)
[2017-05-18] MEDS ORDERED: GLYCOPYRROLATE INJ 0.2 MG/ML 2 ML VIAL As Ordered ONE (07:51)
[2017-05-18] MEDS ORDERED: ONDANSETRON 4MG/2ML VIAL (J2405) IV PRN (08:45)
[2017-05-18] MEDS ORDERED: PERCOCET 5MG/325MG TAB PO PRN (08:45)
[2017-05-18] MEDS ORDERED: METOCLOPRAMIDE INJ 10MG/2ML VIAL (J2765) IV PRN (08:45)
[2017-05-18 09:50] VITALS: BP 137/85
--- NOTE | 2017-05-18 16:51 | RO ---
DATE OF PROCEDURE: 05/18/2017 PREOPERATIVE DIAGNOSES/INDICATION FOR SURGERY: Dysmenorrhea, menorrhagia. POSTOPERATIVE DIAGNOSES: Dysmenorrhea, menorrhagia. PROCEDURE: Dilation and curettage, hysteroscopy, NovaSure ablation. SURGEON: Marilyn Watt MD LACE WINDER: None. ANESTHESIA: Monitored anesthesia care (MAC). BRIEF DESCRIPTION OF PROCEDURE AND FINDINGS: Tony was brought to the operating room where sufficient MAC anesthesia was induced and she was prepped, draped and positioned in the usual sterile fashion. Bladder was emptied and the anterior aspect of the cervix grasped with single-tooth tenaculum. The endocervical canal was sounded to 4. The entire uterus sounded to 8.5 given a cavity length of 4.5. We subsequently got width of 4, but at this point, we only had length 4.5. We then dilated the cervix in order to allow introduction of the hysteroscope, and we were able to visualize a normal appearing endometrial cavity. There was some overgrowth of the endometrium, but no outright polyps, just overgrowth consistent with her menorrhagia history. Curettage was carried out with good sampling of the tissue and to smooth out the posterior wall there and try to optimize our bladed efforts, and then the NovaSure device was placed. Again, length set at 4.5 and width set at 4, cavity test was passed and an uncomplicated NovaSure ablation was then carried out. The procedure was then ended. Estimated blood loss for the procedure maybe 5 mL. Fluid replacement was crystalloid. COMPLICATIONS: None. CONDITION AND DISPOSITION: Tony tolerated procedure well and was recovering in the recovery room in good condition.
== END 2017-05-18 09:51 | disposition home or self-care (01) ==
LOC: M SDC 06:34
PROVIDERS: ATTEND Obstetrics & Gynecology
DX: N94.6 Dysmenorrhea, unspecified (principal); N92.0 Excessive and frequent menstruation with regular cycle; J45.909 Unspecified asthma, uncomplicated; E03.9 Hypothyroidism, unspecified; K21.9 Gastro-esophageal reflux disease without esophagitis; G43.909 Migraine, unspecified, not intractable, without status migrainosus; M32.9 Systemic lupus erythematosus, unspecified; D64.9 Anemia, unspecified; G47.00 Insomnia, unspecified; Z86.718 Personal history of other venous thrombosis and embolism; Z79.899 Other long term (current) drug therapy; Z88.6 Allergy status to analgesic agent; Z91.040 Latex allergy status; Z79.51 Long term (current) use of inhaled steroids
CPT/HCPCS: 58563; 84703; 88305; A4264; J1100; J1885; J2250; J2405; J3010

== ENCOUNTER → 2018-09-25 | Outpatient (CLI) | payer BC ==
[~2018-09-25] MED LIST changes: -/WARF5TA PO; -ACET50TA PO; +COUM1TAB17 PO; +EFFE75CA2 PO; -EFFE75CA75 PO; +MAPA500T17 PO
--- NOTE | 2018-09-25 17:05 | REP ---
Right lower extremity deep vein duplex ultrasound: The deep veins demonstrate normal compression, normal Doppler color flow and normal Doppler waveforms with respiration and augmentation from the popliteal vein to the common femoral vein. There is no deep vein thrombus. At the completion of the study the signal engineer scanned in the area of pain posterolaterally in the right proximal calf. In the area of pain there is thrombus within a superficial vein. There is no deep vein thrombus. There is superficial vein thrombus in the proximal calf posterolaterally. Electronically Signed by Shon Curry MD 09/25/2018 04:56 P
--- NOTE | 2018-09-25 17:15 | REP ---
Sacrum and coccyx three views: The sacroiliac articulations are unremarkable. The sacral ala and foramen are unremarkable. There is no angulation or displacement of the coccyx. There are numerous pelvic calcifications bilaterally, likely phleboliths. Impression: Essentially negative sacrum and coccyx except for numerous pelvic calcifications, likely phleboliths. Electronically Signed by Shon Curry MD 09/25/2018 05:06 P
--- NOTE | 2018-09-25 17:15 | REP ---
Right hip two views : There is no fracture or dislocation. Mineralization and joint spaces are normal. There are no calcifications or foreign bodies. Impression: Negative right hip There are numerous pelvic calcifications, likely phleboliths. . Electronically Signed by Shon Curry MD 09/25/2018 05:06 P
== END ==
LOC: M RAD 16:08
PROVIDERS: ATTEND Physician Assistant
DX: M54.5 Low back pain (principal); M25.552 Pain in left hip; M25.551 Pain in right hip; I82.812 Embolism and thrombosis of superficial veins of left lower extremity; M61.9 Calcification and ossification of muscle, unspecified

== ENCOUNTER → 2018-12-31 | Outpatient (REF) | payer BC | LOC: M LAB REF 15:12 | PROVIDERS: ATTEND Internal Medicine Rheumatology | DX: M35.9 Systemic involvement of connective tissue, unspecified (principal); I26.99 Other pulmonary embolism without acute cor pulmonale ==

== ENCOUNTER 2019-01-10 10:31 | Emergency (ER) | payer BC ==
[~2019-01-10] VITALS: Ht 157.5 cm; Wt 97.3 kg
[~2019-01-10 10:31] MED LIST changes: +ATOR1TAB19 PO; +BACL10TA8 PO; +LEVO150T7 PO; +TOPI25TA10 PO; +XARE15TA PO
[2019-01-10] MEDS ORDERED: NORE0.353 (10:59)
[2019-01-10] MEDS ORDERED: ISOVUE-370 76% 100ML VIAL (Q9967) As Ordered ONE (11:38)
[2019-01-10 12:13] VITALS: BP 116/70
--- NOTE | 2019-01-10 12:17 | REP ---
CT PULMONARY ANGIOGRAM: With IV contrast. HISTORY: Increased chest pain, bilateral upper lobe pulmonary emboli in November 2018. COMPARISON STUDIES: Comparison study is October 16, 2013. CONTRAST DOSE: 75 mL of Isovue [address] TECHNIQUE: Helical scanning is acquired and overlapping 1.5 mm and contiguous 3 mm axial images are reformatted. In addition, maximum intensity projection and multiplanar re-formation images are generated in sagittal and coronal imaging projections. CT PULMONARY ANGIOGRAPHIC FINDINGS: There is good opacification of the pulmonary arterial tree. There is no CT evidence of pulmonary embolus on today's CT images. Maximal intensity projection images show no filling defect or vessel cutoff. No hilar or mediastinal mass or adenopathy is observed. No pleural or pericardial effusion is seen. The lungs are symmetrically aerated and clear. No infiltrate, atelectasis, or pulmonary nodule is appreciated. There are clips in right upper quadrant of the abdomen post cholecystectomy. IMPRESSION: No CT evidence of pulmonary embolus. No active cardiopulmonary disease. Electronically Signed by Juancarlos Guadalupe MD 01/10/2019 02:19 P
--- NOTE | 2019-01-11 21:48 | ECGEPIP ---
[facility] - ED Test Date: 2019-01-10 Pat Name: ISABELLA GORDON Department: Room: - Gender: Female Juice Weigher: GRICELDA : 1980 Requested By: Howard Ladd Order Number: [id number] Reading MD: Howard Juarez Measurements Intervals Hartley Rate: 70 P: 7 MN: 185 QRS: -42 QRSD: 86 T: -1 QT: 375 QTc: 406 Interpretive Statements SINUS RHYTHM LEFT AXIS DEVIATION LOW QRS VOLTAGE IN PRECORDIAL LEADS POSSIBLE INCOMPLETE RIGHT BUNDLE BRANCH BLOCK POOR R WAVE PROGRESSION SIMILAR TO 07/08/15 Electronically Signed on 01-11-2019 21:48:03 EDT by Howard Juarez
== END 2019-01-10 12:35 | disposition home or self-care (01) ==
LOC: M ED 10:31
DX: M94.0 Chondrocostal junction syndrome [Tietze] (principal); J45.909 Unspecified asthma, uncomplicated; Z79.899 Other long term (current) drug therapy; Z88.8 Allergy status to other drugs, medicaments and biological substances; Z91.018 Allergy to other foods; Z91.040 Latex allergy status
CPT/HCPCS: 71275; 93005; 99284; Q9967

== ENCOUNTER → 2019-03-28 | Outpatient (CLI) | payer OTHER ==
[~2019-03-28] MED LIST changes: +NORE0.353; +OMEP40CA97 PO
[2019-03-28 08:10] LABS: ALBUMIN 3.1 GM/DL (3.2-5.2); ALT/SGPT 25 U/L (12-78); BILIRUBIN,TOTAL 0.5 MG/DL (0.2-1.0); BLOOD UREA NITROGEN 10 MG/DL (7-18); CALCIUM LEVEL 8.4 MG/DL (8.5-10.1); CARBON DIOXIDE LEVEL 26 MEQ/L (21-32); CHLORIDE LEVEL 110 MEQ/L (98-107); CHOLESTEROL LEVEL 152 MG/DL (<200); CHOLESTEROL RISK RATIO 2.491 (<5); CREATININE FOR GFR 0.97 MG/DL (0.55-1.30); GLOMERULAR FILTRATION RATE > 60.0 (>60); GLUCOSE, FASTING 98 MG/DL (70-100); HDL CHOLESTEROL 61 MG/DL (>40); LDL CHOLESTEROL 77 MG/DL (<100); NON-HDL-C 91 MG/DL; POTASSIUM SERUM 3.5 MEQ/L (3.5-5.1); SODIUM LEVEL 141 MEQ/L (136-145); THYROID STIMULATING HORMONE 0.674 uIU/ML (0.358-3.740); TOTAL PROTEIN 6.8 GM/DL (6.4-8.2); TRIGLYCERIDES LEVEL 68 MG/DL (<150)
== END ==
LOC: M LAB 07:08
PROVIDERS: ATTEND Internal Medicine Cardiovascular Disease
DX: E78.2 Mixed hyperlipidemia (principal); E03.9 Hypothyroidism, unspecified

== ENCOUNTER → 2019-05-25 | Outpatient (REF) | payer OTHER ==
[~2019-05-25] MED LIST changes: +LINZ72CA PO; +XARE10TA PO; +XARE20TA PO; +ZYRTTAB8 PO
[2019-05-25 20:18] LABS: APPEARANCE, URINE CLEAR (CLEAR); BACTERIA, URINE AUTO NEGATIVE (NEGATIVE); BILIRUBIN, URINE AUTO NEGATIVE (NEGATIVE); BLOOD, URINE BLOOD 2+ (NEGATIVE); COLOR, URINE YELLOW (YELLOW); GLUCOSE, URINE (UA) AUTO NEGATIVE (NEGATIVE); KETONE, URINE AUTO NEGATIVE (NEGATIVE); LEUKOCYTE ESTERASE, URINE AUTO NEGATIVE (NEGATIVE); MUCUS, URINE SMALL (NEGATIVE); NITRITE, URINE AUTO NEGATIVE (NEGATIVE); PROTEIN, URINE AUTO NEGATIVE (NEGATIVE); RBC, URINE AUTO 2 /HPF (0-3); SPECIFIC GRAVITY URINE AUTO 1.023 (1.002-1.035); SQUAMOUS EPITHELIAL CELL UR AU 3 /HPF (0-6); WBC, URINE AUTO 0 /HPF (0-3)
== END ==
LOC: M LAB REF 11:59
PROVIDERS: ATTEND Physician Assistant Medical
DX: N39.0 Urinary tract infection, site not specified (principal)

== ENCOUNTER → 2019-10-14 | Outpatient (CLI) | payer OTHER ==
[~2019-10-14] MED LIST changes: +ONDA4INJ4 PO; -ONDA4INJ48 PO; +VITAD1000T PO
[2019-10-14 12:29] LABS: BASO % 0.7 % (0.0-1.0); EOS # 0.2 10^3/uL (0.0-0.5); EOS % 3.3 % (0.0-3.0); HEMATOCRIT 40.3 % (36.0-47.0); HEMOGLOBIN 12.9 g/dl (12.0-15.5); LYMPH # 1.9 10^3/uL (1.5-5.0); LYMPH % 34.2 % (24.0-44.0); MEAN CORPUSCULAR HEMOGLOBIN 26.2 pg (27.0-33.0); MEAN CORPUSCULAR VOLUME 81.7 fl (80.0-96.0); MONO # 0.5 10^3/uL (0.0-0.8); MONO % 9.3 % (0.0-5.0); NEUTROPHILS # 2.9 10^3/uL (1.5-8.5); NEUTROPHILS % 52.3 % (36.0-66.0); PLATELET COUNT, AUTOMATED 303 10^3/uL (150-450); RED BLOOD COUNT 4.93 10^6/uL (4.00-5.40); WHITE BLOOD COUNT 5.5 10^3/uL (4.0-10.0)
== END ==
LOC: M LAB 12:02
PROVIDERS: ATTEND Internal Medicine Hematology
DX: Z86.711 Personal history of pulmonary embolism (principal)

== ENCOUNTER → 2020-03-30 | Outpatient (CLI) | payer OTHER ==
[~2020-03-30] MED LIST changes: +D31000TA2 PO; -VITAD1000T PO
--- NOTE | 2020-03-30 11:10 | REP ---
INDICATION: SUBCLAVIAN ARTERIAL STENOSIS. LEFT ARM PAIN AND WEAKNESS. DIFFERENTIAL UPPER EXTREMITY BLOOD PRESSURE. COMPARISON: None. TECHNIQUE: REAL-TIME SONOGRAPHIC EVALUATION AND DUPLEX DOPPLER INTERROGATION OF THE LEFT UPPER EXTREMITY ARTERIAL SYSTEM IS PERFORMED. FINDINGS: NORMAL FLOW VELOCITIES AND DOPPLER SPECTRAL WAVEFORMS ARE OBSERVED THROUGHOUT THE LEFT UPPER EXTREMITY ARTERIAL SYSTEM. THERE ARE DIFFUSE TRIPHASIC WAVEFORMS NOTED. NO SIGNIFICANT STENOSIS IS SEEN OF ANY OF THE LEFT UPPER EXTREMITY ARTERIAL STRUCTURES. PEAK SYSTOLIC VELOCITIES: COMMON CAROTID ARTERY: 130 CENTIMETERS/SECOND VERTEBRAL ARTERY: 42 CENTIMETER/SECOND PROXIMAL SUBCLAVIAN ARTERY: 100 CENTIMETER/SECOND MID SUBCLAVIAN ARTERY: 75 CENTIMETERS/SECOND DISTAL SUBCLAVIAN ARTERY: 73 CENTIMETERS/SECOND AXILLARY ARTERY : 98 CENTIMETERS/SECOND PROXIMAL BRACHIAL ARTERY: 113 CENTIMETERS/SECONDS DISTAL BRACHIAL ARTERY: 80 CENTIMETERS/SECONDS PROXIMAL ULNAR ARTERY: 59 CENTIMETERS/SECOND DISTAL ULNAR ARTERY: 35 CENTIMETERS/SECOND PROXIMAL RADIAL ARTERY: 54 CM PER 2ND DISTAL RADIAL ARTERY: 47 CENTIMETERS/SECOND. IMPRESSION: NO DUPLEX DOPPLER SONOGRAPHIC EVIDENCE OF HEMODYNAMICALLY SIGNIFICANT STENOSIS OF LEFT UPPER EXTREMITY ARTERIAL SYSTEM. <Electronically signed by Shon Chan > 03/30/20 [id number]
== END ==
LOC: M RAD 09:52
PROVIDERS: ATTEND Physician Assistant
DX: I77.1 Stricture of artery (principal)